=== PATIENT | male | born 1965 | race Caucasian/White ===

== ENCOUNTER 2024-01-19 10:14 | Day surgery (SDC) | payer BC ==
[~2024-01-19] VITALS: Ht 182.9 cm; Wt 106.8 kg
[~2024-01-19 10:14] MED LIST: ACETAMINOPHEN 1000MG 100ML IV BAG As Ordered ONE; AMLO1TAB24 PO; HYDROmorphone HCL 2MG/ML 1ML VIAL As Ordered ONE; LIDOCAINE 2% 100MG/5ML SDV (FOR ANES.) As Ordered ONE; LOSA100T5 PO; MIDAZOLAM INJ 2MG/2ML VIAL As Ordered ONE; ONDANSETRON 4MG 2ML VIAL As Ordered ONE; ROCURONIUM BROMIDE 50MG/5ML VIAL As Ordered ONE; SILD100T PO; SUGAMMADEX SODIUM 500 MG/5 ML VIAL (BRIDION) As Ordered ONE; fentaNYL 100 MCG/2 ML INJECTION As Ordered ONE; propofoL 200 MG/20 ML VIAL As Ordered ONE
[2024-01-19] MEDS: LR 1,000 ML IV SCH (11:05)
[2024-01-19] MEDS ORDERED: ACETAMINOPHEN TAB 650MG DOSE (2X325MG) PO PRN (11:45)
[2024-01-19] MEDS ORDERED: ONDANSETRON 4MG 2ML VIAL IV PRN (11:45)
[2024-01-19] MEDS: ceFAZolin SOD 2 GM in IV 1 EA IV ONE (11:50)
[2024-01-19] MEDS: HEPARIN SOD (PORCINE) 5000UNITS/ML 1ML VIAL/SYRINGE SQ ONE (11:58)
[2024-01-19] MEDS ORDERED: hydrALAZINE 20MG/ML 1ML VIAL As Ordered ONE (14:18)
[2024-01-19] MEDS ORDERED: KETOROLAC 60MG 2ML VIAL As Ordered ONE (15:46)
[2024-01-19] MEDS: ceFAZolin 2 GM/D5W 50 ML IV BAG As Ordered ONE (16:03)
[2024-01-19] MEDS: LIDOCAINE 1% SDV 30ML VIAL As Ordered ONE (17:06)
[2024-01-19] MEDS ORDERED: fentaNYL 100 MCG/2 ML INJECTION IV PRN (17:15)
[2024-01-19] MEDS: ONDANSETRON 4MG 2ML VIAL IV PRN (17:42)
[2024-01-19] MEDS ORDERED: HOME MED LIST COMPLETE! XX SCH (17:45)
[2024-01-19] MEDS: oxyCODONE 5MG TAB PO PRN (17:58)
[2024-01-19] MEDS: METOCLOPRAMIDE INJ 10MG/2ML VIAL IV PRN (18:10)
[2024-01-19 18:26] LABS: HEMATOCRIT 47.2 % (42.0-52.0); HEMOGLOBIN 17.2 g/dl (13.5-17.5); MEAN CORPUSCULAR HEMOGLOBIN 33.5 pg (27.0-33.0); MEAN CORPUSCULAR HGB CONC 36.4 g/dl (32.0-36.5); MEAN CORPUSCULAR VOLUME 91.8 fl (80.0-96.0); PLATELET COUNT, AUTOMATED 256 10^3/uL (150-450); RED BLOOD COUNT 5.14 10^6/uL (4.30-6.10); WHITE BLOOD COUNT 11.2 10^3/uL (4.0-10.0)
[2024-01-19 18:45] VITALS: BP 147/73; TEMP 97.3; O2SAT 97
[2024-01-19 18:47] LABS: BLOOD UREA NITROGEN 13 MG/DL (9-23); CARBON DIOXIDE LEVEL 26 MMOL/L (20-31); CHLORIDE LEVEL 103 MMOL/L (98-107); CREATININE FOR GFR 0.89 MG/DL (0.70-1.30); GLOMERULAR FILTRATION RATE > 60.0 (>56); GLUCOSE, FASTING 148 MG/DL (60-100); POTASSIUM SERUM 3.9 MMOL/L (3.5-5.1); SODIUM LEVEL 135 MMOL/L (136-145)
[2024-01-19] MEDS: NS 1,000 ML IV SCH (18:51)
[2024-01-19] MEDS ORDERED: LORazepam 2 MG TAB PO PRN (19:00)
[2024-01-19 19:15] VITALS: BP 142/74; TEMP 97.3; O2SAT 98
[2024-01-19 20:00] VITALS: BP 134/73; TEMP 97.3; O2SAT 97
[2024-01-19] MEDS: ceFAZolin SOD 1 GM in D5W MINI-BAG PLUS 50 ML IV SCH (20:00)
[2024-01-19] MEDS: DOCUSATE SODIUM 100MG CAPSULE PO SCH (20:01)
[2024-01-19] MEDS: THIAMINE 100 MG TAB PO SCH (20:01)
[2024-01-19] MEDS: PERCOCET 5MG/325MG TAB PO PRN (20:25)
[2024-01-19 21:00] VITALS: BP 134/70; TEMP 97.3; O2SAT 98
[2024-01-19 22:00] VITALS: BP 130/71; TEMP 97.5; O2SAT 97
[2024-01-19 23:00] VITALS: BP 128/71; TEMP 97.5; O2SAT 95
[2024-01-20] VITALS: BP 128/71; TEMP 97.5; O2SAT 97
[2024-01-20 04:00] VITALS: BP 123/71; TEMP 97.7; O2SAT 95
[2024-01-20 06:09] LABS: HEMATOCRIT 44.3 % (42.0-52.0); HEMOGLOBIN 15.4 g/dl (13.5-17.5); MEAN CORPUSCULAR HEMOGLOBIN 32.2 pg (27.0-33.0); MEAN CORPUSCULAR HGB CONC 34.8 g/dl (32.0-36.5); MEAN CORPUSCULAR VOLUME 92.7 fl (80.0-96.0); PLATELET COUNT, AUTOMATED 236 10^3/uL (150-450); RED BLOOD COUNT 4.78 10^6/uL (4.30-6.10); WHITE BLOOD COUNT 8.3 10^3/uL (4.0-10.0)
[2024-01-20] MEDS: HEPARIN SOD (PORCINE) 5000UNITS/ML 1ML VIAL/SYRINGE SC SCH (06:14)
[2024-01-20 06:32] LABS: BLOOD UREA NITROGEN 15 MG/DL (9-23); CALCIUM LEVEL 8.9 MG/DL (8.5-10.1); CARBON DIOXIDE LEVEL 28 MMOL/L (20-31); CHLORIDE LEVEL 104 MMOL/L (98-107); CREATININE FOR GFR 0.92 MG/DL (0.70-1.30); GLOMERULAR FILTRATION RATE > 60.0 (>56); GLUCOSE, FASTING 149 MG/DL (60-100); POTASSIUM SERUM 4.2 MMOL/L (3.5-5.1); SODIUM LEVEL 137 MMOL/L (136-145)
[2024-01-20 08:00] VITALS: BP_SYST 134; BP_SYST 141; BP_DIAS 73; TEMP 98.1; O2SAT 100
[2024-01-20] MEDS: MULTIVITAMINS/MINERALS THERAP 1 TAB PO SCH (08:11)
[2024-01-20] MEDS: amLODIPine 5 MG TAB PO SCH (08:12)
[2024-01-20] MEDS: FOLIC ACID 1MG TAB PO SCH (08:12)
[2024-01-20] MEDS: LOSARTAN 50MG TABLET PO SCH (08:13)
[2024-01-20] MEDS ORDERED: BACT800T5 PO (09:42)
[2024-01-20] MEDS ORDERED: COLA100C5 PO (09:42)
[2024-01-20] MEDS ORDERED: PERCOCET PO (09:42)
[2024-01-20 12:00] VITALS: BP 147/64; TEMP 98.2; O2SAT 98
[2024-01-20] MEDS: PERCOCET 5MG/325MG TAB PO PRN (12:05)
[2024-01-20 13:59] LABS: SOURCE, BODY FLUID CREATININE PERITONEAL
== END 2024-01-20 16:08 | disposition home or self-care (01) ==
LOC: M SDC 10:14 → M MSPAV 18:38 → M SDC 01-20 16:08
PROVIDERS: ATTEND Urology
DX: C61 Malignant neoplasm of prostate (principal); G47.30 Sleep apnea, unspecified; I10 Essential (primary) hypertension; Z87.891 Personal history of nicotine dependence; Z79.899 Other long term (current) drug therapy
CPT/HCPCS: 36415; 38571; 55866; 80048; 82570; 85027; 86850; 86900; 86901; 88305; 88309; 96372; 96374; 96376; J0131; J0360; J0665; J0690; J1100; J1170; J1885; J2250; J2405; J2765; J3010